=== PATIENT | male | born 1955 | race Caucasian/White ===

== ENCOUNTER → 2019-11-01 | Outpatient (CLI) | payer OTHER ==
[~2019-11-01] MED LIST: ANTIVERT25 MG PO; ASA5UEC PO; ASPIR 8181 M1 PO; LIPITOR40 MG PO; PLAVIX 75 MG TA75 MG PO
== END ==
LOC: M.LAB 09:11
PROVIDERS: ATTEND Orthopaedic Surgery
DX: Z01.812 Encounter for preprocedural laboratory examination (principal); Z11.59 Encounter for screening for other viral diseases

== ENCOUNTER 2019-11-09 13:52 | Inpatient (IN) | payer OTHER ==
[~2019-11-09] VITALS: Ht 175.3 cm; Wt 81.6 kg
[~2019-11-09 13:52] MED LIST changes: -ASA5UEC PO; -LIPITOR40 MG PO; -PLAVIX 75 MG TA75 MG PO
[2019-11-09 13:56] VITALS: BP 168/71
[2019-11-09 14:47] LABS: ABSOLUTE EOSINOPHILS 0.1 thou/uL (0.0-0.7); ABSOLUTE LYMPHOCYTES 1.1 thou/uL (0.8-5.3); ABSOLUTE MONOCYTES 0.5 thou/uL (0.0-1.2); ABSOLUTE NEUTROPHILS 4.8 thou/uL (1.6-8.1); BASOPHILS 0.8 %; EOSINOPHILS 0.9 %; HEMATOCRIT 40.8 % (42.0-52.0); LYMPHOCYTES 16.2 %; MCH 29.8 pg (26.0-34.0); MCHC 34.3 g/dL (28.0-37.0); MCV 86.9 fL (80.0-100.0); MONOCYTES 8.4 %; MPV 9.6 fl. (7.2-11.1); NUCLEATED RBCS 0 /100WBC; PLATELET COUNT* 215 thou/uL (150-400); POLYS 73.7 %; RDW-CV 14.2 % (10.5-14.5); WBC 6.5 thou/uL (4.0-11.0)
[2019-11-09 14:57] LABS: APTT 24.2 Seconds (25.0-31.3); CALCIUM 8.6 mg/dL (8.5-10.1); CREATININE 1.1 mg/dL (0.6-1.3); POTASSIUM 4.2 mmol/L (3.5-5.1); PROTIME 9.9 Seconds (9.20-11.50)
[2019-11-09 15:09] LABS: ALBUMIN 3.8 g/dL (3.4-5.0); TOTAL BILIRUBIN 0.4 mg/dL (<0.1-1.0); TOTAL PROTEIN 7.1 g/dL (6.4-8.2)
--- NOTE | 2019-11-09 15:18 | EKG ---
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
[2019-11-09 15:35] LABS: URINE BILIRUBIN NEGATIVE (Negative); URINE BLOOD NEGATIVE (Negative); URINE CLARITY CLEAR; URINE COLOR YELLOW; URINE GLUCOSE-RANDOM NEGATIVE (Negative); URINE KETONES NEGATIVE (Negative); URINE LEUKOCYTES-REFLEX NEGATIVE (Negative); URINE NITRITE-REFLEX NEGATIVE (Negative); URINE PROTEIN NEGATIVE (Negative); URINE UROBILINOGEN 0.2 E.U./dl (0.2-1.0)
[2019-11-09 17:04] VITALS: BP 132/7
[2019-11-09 18:00] VITALS: BP 170/84
--- NOTE | 2019-11-09 18:38 | NUR ---
REPORT FROM ANUJ GARCIA APPROX 1700. PT ARRIVED ON FLOOR FROM MRI APPROX 1730 BY W/C. PT INITIALLY REPORTED "WEAKNESS/HEAVINESS" IN RLE UPON ARRIVING IN ER. SENSORY NOW IN TACT, NO DEFECIT ASSESSED AT TIME OF ARRIVAL. IV TO RAC 20g SALINE LOCKED. DRESSING C/D/I. 324mg ASA ADMIN IN ER PRIOR TO [facility] F[facility]. PT REMAINS ON ROOM AIR O2 SAT 98-100%. PT UP TO RESTROOM W/ "BATHROOM PRIVILEGES. PT AMB TO NURSES STATION TO MAKE REQUESTS, GAIT OBSERVED TO BE STEADY, PT CONTINUES TO DENY PAIN. PT REMAINS SINUS ON MONITOR. PT RESTS IN ROOM AT THIS TIME. TV REMOTE REQUESTED FROM QUARANTINE OFFICER. HOUSE SUPER AWARE. WILL CONTINUE TO MONITOR.
[2019-11-09 20:00] VITALS: BP 173/86
[2019-11-10] VITALS: BP 148/72
[2019-11-10 04:00] VITALS: BP 143/75
[2019-11-10 05:16] LABS: CHOLESTEROL 230 mg/dL (<200); HDL CHOLESTEROL 63 mg/dL (>40); LDL CHOLESTEROL 150 mg/dL (<100); TC:HDL 3.7 Ratio (Not establshd); TRIGLYCERIDE 85 mg/dL (<150); VLDL 17 mg/dL (<40)
[2019-11-10 05:39] LABS: SERUM ASSESSMENT CLEAR
[2019-11-10 08:00] VITALS: BP 152/87
[2019-11-10] MEDS ORDERED: LIPITOR40 MG PO (11:04)
[2019-11-10] MEDS ORDERED: ASA5UEC PO (11:06)
[2019-11-10 12:15] VITALS: BP 160/84
[2019-11-10 14:11] VITALS: BP 160/84
[2019-11-10] MEDS ORDERED: PLAVIX 75 MG TA75 MG PO (15:25)
--- NOTE | 2019-11-10 18:16 | NUR ---
ORDER RECEIVED TO DISCHARGE PATIETN HOME TO SELF CARE. MED REC, MEDICATION EDUCATION, STROKE EDUCATION, AND NEED FOR FOLLOW UP APPOINTMENT WITH PRIMARY AND NEUROLOGY. VSS AND PATIENT IN NO APPARMENT SIGNS OF DISTRESS. DC TIME OF 16:50.
[2019-11-12 04:05] LABS: GLYCOHEMOGLOBIN (HGB A1C) 5.5 % (4.8-5.6)
== END 2019-11-10 17:00 | disposition home or self-care (01) | DRG 66 ==
LOC: M.ERS 13:52 → M.TBA-ER 16:05 → M.2W 17:11
PROVIDERS: Emergency Medicine Emergency Medical Services; ADMIT Internal Medicine; ATTEND Internal Medicine
DX: I63.81 Other cerebral infarction due to occlusion or stenosis of small artery (principal); E78.00 Pure hypercholesterolemia, unspecified; I10 Essential (primary) hypertension; E78.5 Hyperlipidemia, unspecified; Z79.899 Other long term (current) drug therapy; Z82.49 Family history of ischemic heart disease and other diseases of the circulatory system; Z72.89 Other problems related to lifestyle; Z03.818 Encounter for observation for suspected exposure to other biological agents ruled out; G83.11 Monoplegia of lower limb affecting right dominant side

== ENCOUNTER 2019-11-16 15:49 | Emergency (ER) | payer OTHER ==
[~2019-11-16] VITALS: Ht 175.3 cm; Wt 81.7 kg
[~2019-11-16 15:49] MED LIST changes: +ASA5UEC PO; +LIPITOR40 MG PO; +PLAVIX 75 MG TA75 MG PO
[2019-11-16 16:33] LABS: ABSOLUTE BASOPHILS 0.1 thou/uL (0.0-0.2); ABSOLUTE EOSINOPHILS 0.1 thou/uL (0.0-0.7); ABSOLUTE LYMPHOCYTES 1.3 thou/uL (0.8-5.3); ABSOLUTE MONOCYTES 0.8 thou/uL (0.0-1.2); ABSOLUTE NEUTROPHILS 5.9 thou/uL (1.6-8.1); BASOPHILS 0.9 %; EOSINOPHILS 1.2 %; HEMATOCRIT 41.9 % (42.0-52.0); HEMOGLOBIN 14.3 gm/dL (14.0-18.0); LYMPHOCYTES 15.6 %; MCH 29.8 pg (26.0-34.0); MCHC 34.1 g/dL (28.0-37.0); MCV 87.2 fL (80.0-100.0); MONOCYTES 9.8 %; MPV 10.1 fl. (7.2-11.1); NUCLEATED RBCS 0 /100WBC; PLATELET COUNT* 228 thou/uL (150-400); POLYS 72.5 %; RDW-CV 14.3 % (10.5-14.5); WBC 8.1 thou/uL (4.0-11.0)
[2019-11-16 16:36] LABS: CALCIUM 8.7 mg/dL (8.5-10.1); CREATININE 1.1 mg/dL (0.6-1.3); POTASSIUM 4.4 mmol/L (3.5-5.1)
--- NOTE | 2019-11-16 16:41 | EKG ---
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
[2019-11-16 16:43] LABS: URINE BILIRUBIN NEGATIVE (Negative); URINE BLOOD NEGATIVE (Negative); URINE CLARITY CLEAR; URINE COLOR YELLOW; URINE GLUCOSE-RANDOM NEGATIVE (Negative); URINE KETONES NEGATIVE (Negative); URINE LEUKOCYTES-REFLEX NEGATIVE (Negative); URINE NITRITE-REFLEX NEGATIVE (Negative); URINE PROTEIN NEGATIVE (Negative); URINE SPECIFIC GRAVITY 1.015 (1.005-1.030); URINE UROBILINOGEN 0.2 E.U./dl (0.2-1.0)
[2019-11-16 16:44] LABS: APTT 25.4 Seconds (25.0-31.3); INR 0.9; PROTIME 9.8 Seconds (9.20-11.50)
[2019-11-16 16:47] LABS: TOTAL BILIRUBIN 0.4 mg/dL (<0.1-1.0); TOTAL PROTEIN 7.5 g/dL (6.4-8.2)
[2019-11-16 19:16] VITALS: BP 159/81
== END 2019-11-16 19:17 | disposition home or self-care (01) ==
LOC: M.ERS 15:49
PROVIDERS: Emergency Medicine Emergency Medical Services
DX: R42 Dizziness and giddiness (principal)

== ENCOUNTER → 2019-11-26 | Outpatient (CLI) | payer OTHER ==
--- NOTE | 2019-11-26 15:30 | 2DMMODE ---
[place] [address] 2 D/M-MODE ECHOCARDIOGRAM Name: DON GARZA Room: [facility]#: [id number] Admission: 11/26/19 Attend Phys: David Cabezas, Discharge: Date of : 57 Date of Service: 11/26/19 1529 Report #: [id number] THIS REPORT FOR: cc: Valdez Joyner MD, Matthew W. MD Blick, David R. MD [facility] ~ APPROVED REPORT Study performed: 11/26/2019 09:58:57 EXAM: Comprehensive 2D, Doppler, and color-flow Echocardiogram Patient Location: Out-Patient BSA: 1.99 HR: 54 bpm BP: 138/78 mmHg Other Information Study Quality: Good Indications CVA/TIA Echo Enhancing Agent Indication: Rule out Shunt Agent(s) / Amount(s) Used: Agitated Saline cc 2D Dimensions IVSd: 11.95 (7-11mm) LVOT Diam: 21.66 (18-24mm) LVDd: 47.01 mm PWd: 11.16 (7-11mm) Ascending Ao: 34.06 (22-36mm) LVDs: 31.78 (25-40mm) Aortic Root: 28.17 mm Volumes Left Atrial Volume (Systole) LA ESV Index: 25.10 mL/m2 Aortic Valve AoV Peak Jorge.: 1.11 m/s AO Peak Gr.: 4.93 mmHg LVOT Max P.14 mmHg AO Mean Gr.: 2.77 mmHg LVOT Mean P.89 mmHg LVOT Max V: 1.02 m/s AO V2 VTI: 23.40 cm LVOT Mean V: 0.63 m/[place] [address] 2 D/M-MODE ECHOCARDIOGRAM Name: DON GARZA [id number] Admission: 11/26/19 Attend Phys: David Cabezas, Discharge: Date of : 57 Date of Service: 11/26/19 1529 Report #: [id number] GUS (VTI): 2.98 cm2 LVOT V1 VTI: 18.94 cm Mitral Valve E/A Ratio: 0.97 MV Decel. Time: 277.64 ms MV E Max Jorge.: 0.74 m/s MV PHT: 80.52 ms MVA (PHT): 2.73 cm2 TDI E/Lateral E': 7.40 E/Medial E': 9.25 Medial E' Jorge.: 0.08 m/s Lateral E' Jorge.: 0.10 m/s Pulmonary Valve PV Peak Jorge.: 1.05 m/s PV Peak Gr.: 4.39 mmHg Tricuspid Valve RAP Estimate: 5.00 mmHg TR Peak Gr.: 18.17 mmHg RVSP: 23.17 mmHg PA Pressure: 23.17 mmHg Left Ventricle The left ventricle is normal size. There is normal LV segmental wall motion. Mild concentric left ventricular hypertrophy. Left ventricular systolic function is normal. The left ventricular ejection fraction is within the normal range. LVEF is 60-65%. Right Ventricle Right ventricle is borderline dilated. The right ventricular systolic function is normal. Atria The left atrium size is normal. Injection of bubbles documented no interatrial shunt. Atrial septal aneurysm is present. Right atrium is borderline dilated. Aortic Valve The aortic valve is normal in structure. No aortic regurgitation is present. There is no aortic valvular stenosis. Mitral Valve The mitral valve is normal in structure. There is trace mitral valve regurgitation noted. No evidence of mitral valve stenosis[place] [address] 2 D/M-MODE ECHOCARDIOGRAM Name: DON GARZA Room: [facility]#: [id number] Admission: 11/26/19 Attend Phys: David Cabezas, Discharge: Date of : 57 Date of Service: 11/26/19 1529 Report #: [id number] The tricuspid valve is normal in structure. Trace tricuspid regurgitation. Pulmonic Valve Pulmonic valve is not well visualized. Trace pulmonic regurgitation. Great Vessels The aortic root is normal in size. IVC is normal in size and collapses >50% with inspiration. Pericardium There is no pericardial effusion. <Conclusion> LVEF is 60-65%. Mild concentric left ventricular hypertrophy. Injection of bubbles documented no interatrial shunt. Atrial septal aneurysm is present. <ELECTRONICALLY SIGNED> By: Robin Castellanos MD, FACC 11/26/19 1529 1529 1529 Robin Castellanos MD, FACC /INF
== END ==
LOC: M.CRD 10:00
PROVIDERS: ATTEND Internal Medicine Cardiovascular Disease
DX: I51.7 Cardiomegaly (principal); I63.439 Cerebral infarction due to embolism of unspecified posterior cerebral artery

== ENCOUNTER → 2019-12-06 | Outpatient (CLI) | payer OTHER | LOC: M.CT 09:00 | PROVIDERS: ATTEND Internal Medicine Cardiovascular Disease | DX: Z13.6 Encounter for screening for cardiovascular disorders (principal); I25.10 Atherosclerotic heart disease of native coronary artery without angina pectoris ==

== ENCOUNTER → 2019-12-21 | Outpatient (CLI) | payer OTHER ==
--- NOTE | 2019-12-25 13:07 | CARDNUC ---
[place] [address] CARDIAC NUCLEAR IMAGING REPORT Name: DON GARZA Room: [facility]#: [id number] Admission: 12/21/19 Attend Phys: David Cabezas, Discharge: Date of : 57 Date of Service: 12/25/19 1306 Report #: [id number] THIS REPORT FOR: cc: Valdez Joyner MD, Matthew W. MD [place]on, Michael J. MD [facility] ~ APPROVED REPORT Imaging Protocol: Stress Tc-99m/Rest Tc-99m 1 day Study performed: 12/21/2019 09:45:00 Indication: elvated calcium score Patient Location: Out-Patient Stress Tech: Ly Donaldson Stress Nurse: Tiarra Camacho RN Ht: 5 ft 9 in Wt: 182 lbs BSA: 1.99 m2 BMI: 26.87 Medical History Medical History: CAD non obstructive, HTN Medications: amlodipine, plavis, livalo Allergies: No known drug allergies Cardiac Risk Factors: Age, FHX of CAD, HTN Exercise History: Physically active Resting Data Rest SPECT myocardial perfusion imaging was performed in supine position 30 minutes following the intravenous injection of 10.5 mCi of Tc-99m Sestamibi. Time of rest injection: 09:55 The images were gated to evaluate regional wall motion and calculate left ventricular ejection fraction. Administration Route: IV Administration Site: Right Hand Exercise Stress At peak stress, the patient was injected intravenously with 35.2mCi of Tc-99m Sestamibi. Time of stress injection: 11:40 Administration Route: IV Administration Site: Right Hand Heart Rate at time of stress injection: 152 bpm. Patient continued to exercise for 1 minute([place]). [place] [address] CARDIAC NUCLEAR IMAGING REPORT Name: DON GARZA Room: [facility]#: [id number] Admission: 12/21/19 Attend Phys: David Cabezas, Discharge: Date of : 57 Date of Service: 12/25/19 1306 Report #: [id number] Gated Stress SPECT was performed 30 minutes after stress injection. The images were gated to evaluate regional wall motion and calculate left ventricular ejection fraction. Prone imaging was performed. Stress Test Details Stress Test: Exercise stress testing was performed using a Tyron protocol. HR Max Heart Rate (APMHR): 157 bpm Resting HR: 47 bpm Target HR (85% APMHR): 133 bpm Max HR Achieved: 152 bpm % of APMHR: 96 Recovery HR: 73 bpm BP Resting BP: 125/86 mmHg Max BP: 205/61 mmHg Recovery BP: 154/61 mmHg ECG Resting ECG: Sinus Rhythm Stress ECG: Sinus Tachycardia ST Change: None Arrhythmia: VPC's Recovery ECG: Sinus Rhythm Recovery ST Change: None Recovery Arrhythmia: VPC's Clinical Reason for Termination: Fatigue, unsteady gait Exercise duration: 11 min 56 sec Exercise capacity: 13.48 METs Functional Aerobic Impairment 97% The patient tolerated standard Tyron protocol exercise without significant cardiac symptoms. Stress ECG Conclusion The baseline twelve-lead EKG shows sinus rhythm with no significant ST segment or T wave abnormality. EKGs obtained during and post exercise shows sinus rhythm and sinus tachycardia with no significant ST segment changes when compared to baseline. There were occasional unifocal premature ventricular contractions noted. Study Quality Study: [place] [address] CARDIAC NUCLEAR IMAGING REPORT Name: DON GARZA Room: [facility]#: [id number] Admission: 12/21/19 Attend Phys: David Cabezas, Discharge: Date of : 57 Date of Service: 12/25/19 1306 Report #: [id number] Artifact: No artifact Study Data At rest, the left ventricular ejection fraction was 55%.. Post stress, the left ventricular ejection was 54%.. TID = 0.96. Perfusion Perfusion images obtained at rest and post exercise stress showed uniform uptake of the radioisotope throughout the myocardium without significant defect. Wall Motion Normal left ventricular wall motion. Nuclear Conclusion ECG Findings: negative for ischemia Clinical Findings: negative for ischemia Nuclear Findings: negative for ischemia Exercise Capacity: normal Left Ventricular Function: normal Risk Study: low Perfusion study show no defect to suggest infarct or ischemia. Left ventricular systolic function appears normal on gated studies. This is a low risk study. <Conclusion> The baseline twelve-lead EKG shows sinus rhythm with no significant ST segment or T wave abnormality. EKGs obtained during and post exercise shows sinus rhythm and sinus tachycardia with no significant ST segment changes when compared to baseline. There were occasional unifocal premature ventricular contractions noted. <ELECTRONICALLY SIGNED> By: David Cabezas MD, FACC 12/25/19 1306 1306 1306 David Cabezas MD, FACC /INF
== END ==
LOC: M.NUC 12-11 16:12 → M.CRD 12-17 08:00 → M.NUC 12-17 08:00
PROVIDERS: ATTEND Internal Medicine Cardiovascular Disease
DX: R93.1 Abnormal findings on diagnostic imaging of heart and coronary circulation (principal)

== ENCOUNTER → 2020-04-09 | Outpatient (CLI) | payer OTHER ==
[2020-04-09 08:22] LABS: ALBUMIN 3.8 g/dL (3.4-5.0); ALKALINE PHOSPHATASE 81 U/L (46-116); CHOLESTEROL 173 mg/dL (<200); DIRECT BILIRUBIN 0.1 mg/dL (<0.1-0.3); HDL CHOLESTEROL 70 mg/dL (>40); LDL CHOLESTEROL 97 mg/dL (<100); SGOT 44 U/L (15-37); SGPT 41 U/L (30-65); TC:HDL 2.5 Ratio (Not establshd); TOTAL BILIRUBIN 0.8 mg/dL (<0.1-1.0); TOTAL PROTEIN 6.7 g/dL (6.4-8.2); TRIGLYCERIDE 32 mg/dL (<150); VLDL 6 mg/dL (<40)
[2020-04-09 08:25] LABS: SERUM ASSESSMENT Clear
== END ==
LOC: M.LAB 07:41
PROVIDERS: ATTEND Nurse Practitioner
DX: E78.5 Hyperlipidemia, unspecified (principal)

== ENCOUNTER → 2021-01-22 | Outpatient (CLI) | payer MEDICARE | LOC: M.ULTRA 07:48 | PROVIDERS: ATTEND Physician Assistant | DX: R10.9 Unspecified abdominal pain (principal) ==